=== PATIENT | female | born 1970 | race Caucasian/White ===

== ENCOUNTER 2016-07-25 00:28 | Emergency (ER) | payer OTHER ==
[~2016-07-25] VITALS: Ht 157.5 cm; Wt 82.6 kg
[~2016-07-25 00:28] MED LIST: ACID CONTROL150 MG PO; ALAGESIC CAPSU1 EACH PO; ALEVE220 MG PO; ASPIR-TRIN325 M1 PO; ATHENOL325 MG PO; CETIRIZINE HCL10 M2 PO; INDOCIN25 MG PO; MOTRIN600 MG PO; MOTRIN800 MG PO; MUCINEX D ER T1 EACH PO; NAPROXEN500 MG PO; NOHOMEMEDS; NORCO 5/3251 TABLET PO; PRILOSEC OTC20 M1 PO; ROBITUSSIN AC,T10 ML PO; TORADOL10 MG PO; TRAMADOL HCL50 MG PO
[2016-07-25] MEDS ORDERED: ZANTAC150 MG PO (00:48)
[2016-07-25] MEDS ORDERED: NEXIUM20 MG PO (00:48)
[2016-07-25 01:27] VITALS: BP 94/55
== END 2016-07-25 01:28 | disposition home or self-care (01) ==
LOC: EME 00:28
DX: K21.9 Gastro-esophageal reflux disease without esophagitis (principal); F17.200 Nicotine dependence, unspecified, uncomplicated
CPT/HCPCS: 93005; 99281; 99283

== ENCOUNTER 2016-09-20 11:53 | Emergency (ER) | payer OTHER ==
[~2016-09-20] VITALS: Ht 157.5 cm; Wt 81.0 kg
[~2016-09-20 11:53] MED LIST changes: +NEXIUM20 MG PO; +ZANTAC150 MG PO
[2016-09-20 12:43] LABS: HEMATOCRIT 30.2 % (36.0-46.0); MCHC 30.1 G/DL (30.0-36.0); MCV 76.3 FL (83-99); MEAN PLAT.VOLUME 10.2 uM^3 (9.5-12.4); PLATELET COUNT 259 K/uL (156-360); RBC DIS.WIDTH-CV 16.7 % (11.8-14.6); RBC DIS.WIDTH-SD 45.6 % (39-53); RED BLOOD COUNT 3.96 M/uL (3.80-5.20); WHITE BLOOD COUNT 6.1 K/uL (4.1-10.2)
[2016-09-20 12:49] LABS: CHLORIDE 109 mEq/L (99-109); POTASSIUM 5.2 mEq/L (3.7-5.4); SODIUM 137 mEq/L (136-147)
[2016-09-20 12:51] LABS: GLUCOSE 97 mg/dL (70-99)
[2016-09-20 12:52] LABS: ANION GAP 5 MEQ/L (2-14)
[2016-09-20 12:55] LABS: GFR ESTIMATE (CALCULATED) > 59 mL/min/
[2016-09-20 12:56] LABS: UREA NITROGEN (BUN) 11 mg/dL (9-23)
[2016-09-20 13:03] LABS: TROP-I INTERPRETATION NEGATIVE; TROPONIN-I 0.02 ng/mL (0.0-0.30)
[2016-09-20] MEDS ORDERED: CARAFATE1 GM PO (13:48)
[2016-09-20 14:20] VITALS: BP 92/67
== END 2016-09-20 14:22 | disposition home or self-care (01) ==
LOC: EME 11:53
DX: K21.9 Gastro-esophageal reflux disease without esophagitis (principal); F32.9 Major depressive disorder, single episode, unspecified; F17.200 Nicotine dependence, unspecified, uncomplicated
CPT/HCPCS: 71020; 80048; 84484; 85027; 93005; 99281; 99284

== ENCOUNTER 2016-09-22 06:29 | Day surgery (SDC) | payer OTHER ==
[~2016-09-22] VITALS: Ht 157.5 cm; Wt 81.2 kg
[~2016-09-22 06:29] MED LIST changes: +CARAFATE1 GM PO
[2016-09-22 07:27] VITALS: BP 122/81
[2016-09-22 10:20] VITALS: BP 116/44
[2016-09-22 11:37] VITALS: BP 114/73
[2016-09-22 12:42] VITALS: BP 110/72
[2016-09-25 13:54] LABS: INTERNAL CONTROL VALID? YES
== END 2016-09-22 12:46 | disposition home or self-care (01) ==
LOC: SDC 06:29
PROVIDERS: Obstetrics & Gynecology Gynecology
PROC: 0UDB8ZX Extraction of Endometrium, Via Natural or Artificial Opening Endoscopic, Diagnostic (ICD-10-PCS; principal; 2016-09-22)
DX: N84.0 Polyp of corpus uteri (principal); N92.0 Excessive and frequent menstruation with regular cycle; D25.1 Intramural leiomyoma of uterus; J45.909 Unspecified asthma, uncomplicated; D64.9 Anemia, unspecified; K21.9 Gastro-esophageal reflux disease without esophagitis; Z68.32 Body mass index [BMI] 32.0-32.9, adult; E66.9 Obesity, unspecified; F17.210 Nicotine dependence, cigarettes, uncomplicated; Z82.49 Family history of ischemic heart disease and other diseases of the circulatory system
CPT/HCPCS: 84703; 88305; 94640; J1885; J2250; J3010; J7120